=== PATIENT | female | born 1985 ===

== ENCOUNTER 2018-05-15 07:15 | Inpatient (IN) | payer OTHER ==
[~2018-05-15] VITALS: Ht 162.6 cm; Wt 59.4 kg
[2018-05-23] MEDS ORDERED: IBUPROFEN600 MG PO (07:16)
[2018-05-23] MEDS ORDERED: FERROUS SULFAT325 M1 PO (07:16)
== END 2018-05-23 07:57 | DRG 743 ==
LOC: SURH 05-20 07:15 → O/R 05-20 09:01 → OB/GYN 05-20 09:01 → SURH 05-20 10:15 → OB/GYN 05-20 16:25
PROVIDERS: Obstetrics & Gynecology
PROC: 0UT70ZZ Resection of Bilateral Fallopian Tubes, Open Approach (ICD-10-PCS; 2018-05-20)
PROC: 0UT90ZZ Resection of Uterus, Open Approach (ICD-10-PCS; principal; 2018-05-20 10:15)
DX: D25.2 Subserosal leiomyoma of uterus (principal); N92.1 Excessive and frequent menstruation with irregular cycle